=== PATIENT | male | born 1950 | race African-American/Black ===

== ENCOUNTER 2019-07-11 10:02 | Emergency (ER) | payer MEDICARE ==
[~2019-07-11] VITALS: Ht 177.8 cm; Wt 68.0 kg
[2019-07-11] MEDS ORDERED: KETOROLAC 60MG/2ML VIAL IM ONE (10:45)
[2019-07-11 14:12] VITALS: BP 145/68
== END 2019-07-11 14:17 | disposition home or self-care (01) ==
LOC: ER 10:02
DX: G89.29 Other chronic pain (principal); M25.512 Pain in left shoulder; M54.9 Dorsalgia, unspecified; I11.9 Hypertensive heart disease without heart failure; Z86.73 Personal history of transient ischemic attack (TIA), and cerebral infarction without residual deficits
CPT/HCPCS: 96372; 99283; J1885

== ENCOUNTER 2020-12-27 06:03 | Inpatient (IN) | payer MEDICARE, MEDICAID ==
[~2020-12-27] VITALS: Ht 170.2 cm; Wt 61.2 kg
[2020-12-27] MEDS ORDERED: IOHEXOL-350 100 ML BOTTLE ONE (07:24)
[2020-12-27 07:32] LABS: BASOPHILS % 0.8 % (0.0-2.0); EOSINOPHILS % 1.3 % (0.0-5.0); HEMATOCRIT. 40.3 % (42.0-52.0); HEMOGLOBIN. 13.2 g/dL (14.0-18.0); LYMPHOCYTES % 18.1 % (20.0-50.0); MEAN CORPUSCULAR VOLUME 85.2 fL (80.0-94.0); MEAN PLATELET VOLUME 9.7 fl (7.4-10.4); MONOCYTES % 13.8 % (2.0-8.0); PLATELET 192 x1000/uL (130-400); RED BLOOD CELL COUNT 4.73 mill/uL (4.7-6.1); RED CELL DISTRIBUTION WIDTH 15.7 % (11.6-14.6)
[2020-12-27 07:40] LABS: CHLORIDE 105 mEq/L (98-107)
[2020-12-27 07:44] LABS: ETHANOL BLOOD < 10 mg/dL
[2020-12-27 07:47] LABS: LDL CHOLESTEROL 72 mg/dL (5-100)
[2020-12-27 09:09] LABS: PROTHROMBIN TIME 10.3 sec (9.6-11.0)
[2020-12-27] MEDS ORDERED: ASPIRIN 325MG EC TABLET PO ONE (10:00)
[2020-12-27] MEDS ORDERED: POTASSIUM CHLORIDE 20MEQ TABLET SR PO NR (10:45)
[2020-12-27 10:58] LABS: CLARITY URINE CLEAR (CLEAR); COLOR URINE YELLOW (YELLOW); KETONES URINE TRACE (NEGATIVE); LEUKOCYTE ESTERASE URINE NEGATIVE (NEGATIVE); NITRITE URINE NEGATIVE (NEGATIVE); OCCULT BLOOD URINE TRACE (NEGATIVE); PH URINE 5.5 (4.5-8.0); PROTEIN URINE NEGATIVE (NEGATIVE); SPECIFIC GRAVITY URINE 1.028 (1.005-1.030)
[2020-12-27 11:11] LABS: *AMPHETAMINES SCREEN URINE NEGATIVE (NEGATIVE); *BARBITURATES SCREEN URINE NEGATIVE (NEGATIVE); *BENZODIAZEPINES SCREEN URINE NEGATIVE (NEGATIVE)
[2020-12-27 11:12] LABS: *COCAINE SCREEN URINE PRESUMTIVE POSITIVE (NEGATIVE); CANNABINOID URINE SCREEN NEGATIVE (NEGATIVE); METHADONE URINE SCREEN NEGATIVE (NEGATIVE); OPIATES URINE SCREEN NEGATIVE (NEGATIVE); PHENCYCLIDINE URINE SCREEN NEGATIVE (NEGATIVE)
[2020-12-27 12:07] VITALS: BP 202/94
[2020-12-27] MEDS ORDERED: HYDRALAZINE 20MG/ML VIAL IV ONE (12:45)
[2020-12-27] MEDS ORDERED: LORAZEPAM 2MG/ML CPJ IV PRN ×3 (12:45→15:30)
[2020-12-27] MEDS: INSULIN LISPRO 100 UNITS/ML SUBCUT SCH ×3 (12:50→21:00)
[2020-12-27] MEDS ORDERED: GUAIFENESIN 200MG/10ML SUGAR FREE UDC PO PRN (13:00)
[2020-12-27] MEDS ORDERED: DOCUSATE SODIUM 100MG CAPSULE PO PRN (13:00)
[2020-12-27] MEDS ORDERED: ONDANSETRON HCL 4MG/2ML INJ IV PRN (13:00)
[2020-12-27] MEDS ORDERED: HYDROCODONE/ACETAMINOPHEN 5/325MG TABLET PO PRN (13:00)
[2020-12-27] MEDS ORDERED: IPRATROPIUM/ALBUTEROL 0.5-3(2.5)MG/3ML NEB NEB PRN (13:00)
[2020-12-27] MEDS ORDERED: MAGNESIUM/ALUMINUM HYDROXIDE/SIMETHICONE 30ML UDC PO PRN (13:00)
[2020-12-27] MEDS ORDERED: ACETAMINOPHEN 325MG TABLET PO PRN (13:00)
[2020-12-27] MEDS: ASPIRIN 81MG TABLET PO SCH (13:00)
[2020-12-27] MEDS ORDERED: ACETAMINOPHEN 650MG SUPP PR PRN (13:00)
[2020-12-27] MEDS: AMLODIPINE 5MG TABLET PO SCH (13:00)
[2020-12-27] MEDS ORDERED: CEFTRIAXONE 1 G PREMIX 50 ML IV SCH (13:00)
[2020-12-27] MEDS ORDERED: DEXTROSE 50% WATER 50ML SYRINGE IV PRN (13:00)
[2020-12-27] MEDS ORDERED: NA PHOS,M-B/NA PHOS,DI-BA ENEMA 118ML PR PRN (13:00)
[2020-12-27] MEDS ORDERED: *PATIENT'S OWN MEDICATION STORAGE XX SCH (13:15)
[2020-12-27 14:15] VITALS: BP 130/76
[2020-12-27] MEDS ORDERED: GLYC10.7 INH (14:40)
[2020-12-27] MEDS ORDERED: BACL20TA MT (14:40)
[2020-12-27] MEDS ORDERED: AMLO1CAP2 MT (14:40)
[2020-12-27] MEDS ORDERED: DICL100G31 TP (14:40)
[2020-12-27] MEDS ORDERED: CRES10 MT (14:40)
[2020-12-27] MEDS ORDERED: ASPI-1497 MT (14:40)
[2020-12-27] MEDS ORDERED: TRAM50TA94 MT (14:40)
[2020-12-27] MEDS ORDERED: DONE10TA11 MT (14:40)
[2020-12-27] MEDS: CEFTRIAXONE 1,000 MG in DEXTROSE 5% WATER 50 ML IV SCH (15:43)
[2020-12-27 16:00] VITALS: BP 135/78
[2020-12-27] MEDS: AZITHROMYCIN 500 MG in DEXT 5% WATER 250 ML IV SCH (16:15)
[2020-12-27] MEDS: BLOOD SUGAR DIAGNOSTIC STRIP TEST SCH ×2 (16:41→21:00)
[2020-12-27 17:27] LABS: CREATINE KINASE 768 IU/L (39-308)
[2020-12-27 17:28] LABS: CREATINE KINASE MB FRACTION 11.7 ng/mL (0.5-3.6)
[2020-12-27 20:00] VITALS: BP 125/88
[2020-12-27] MEDS ORDERED: HALOPERIDOL LACTATE 5MG/ML VIAL IM PRN (21:30)
[2020-12-27] MEDS: FAMOTIDINE 20MG TABLET PO SCH (22:10)
[2020-12-27] MEDS: DIPHENHYDRAMINE 50MG/ML VIAL IV PRN (22:10)
[2020-12-27] MEDS: ATORVASTATIN CALCIUM 20MG TABLET PO SCH (22:10)
[2020-12-28] VITALS (7 sets, daily range): BP systolic 153–185; BP diastolic 85–114
[2020-12-28 00:33] LABS: CREATINE KINASE 823 IU/L (39-308)
[2020-12-28 00:34] LABS: CREATINE KINASE MB FRACTION 10.5 ng/mL (0.5-3.6)
[2020-12-28] MEDS: BLOOD SUGAR DIAGNOSTIC STRIP TEST SCH ×4 (06:57→21:50)
[2020-12-28 06:58] LABS: BASOPHILS % 0.5 % (0.0-2.0); EOSINOPHILS % 1.8 % (0.0-5.0); HEMATOCRIT. 40.9 % (42.0-52.0); HEMOGLOBIN. 13.6 g/dL (14.0-18.0); LYMPHOCYTES % 19.5 % (20.0-50.0); MEAN CORPUSCULAR HEMOGLOBIN 28.6 pg (28.0-32.0); MEAN CORPUSCULAR VOLUME 86.3 fL (80.0-94.0); MEAN PLATELET VOLUME 10.2 fl (7.4-10.4); MONOCYTES % 10.5 % (2.0-8.0); NEUTROPHILS % 67.7 % (40.0-76.0); PLATELET 191 x1000/uL (130-400); RED BLOOD CELL COUNT 4.74 mill/uL (4.7-6.1); RED CELL DISTRIBUTION WIDTH 15.5 % (11.6-14.6)
[2020-12-28 07:40] LABS: CHLORIDE 107 mEq/L (98-107)
[2020-12-28] MEDS: INSULIN LISPRO 100 UNITS/ML SUBCUT SCH ×4 (07:50→21:00)
[2020-12-28] MEDS: ASPIRIN 81MG TABLET PO SCH (07:51)
[2020-12-28] MEDS: AMLODIPINE 5MG TABLET PO SCH (07:51)
[2020-12-28 08:03] LABS: HDL CHOLESTEROL 100 mg/dL (40-59)
[2020-12-28 08:06] LABS: T4 FREE 1.33 ng/dL (0.76-1.46)
[2020-12-28 08:08] LABS: LDL CHOLESTEROL 72 mg/dL (5-100)
[2020-12-28] MEDS: POTASSIUM CHLORIDE INJ 40 MEQ in DEXT 5% WATER 250 ML IV NR ×2 (11:30→16:18)
[2020-12-28] MEDS ORDERED: ASPI-1497 MT (14:59)
[2020-12-28] MEDS ORDERED: LIP40 MT (14:59)
[2020-12-28] MEDS: AZITHROMYCIN 500 MG in DEXT 5% WATER 250 ML IV SCH (15:00)
[2020-12-28] MEDS: CEFTRIAXONE 1,000 MG in DEXTROSE 5% WATER 50 ML IV SCH (15:00)
[2020-12-28] MEDS ORDERED: POTASSIUM CHLORIDE 20MEQ/PACKET PO NR (20:45)
[2020-12-28] MEDS: DIPHENHYDRAMINE 50MG/ML VIAL IV PRN (21:49)
[2020-12-28] MEDS: HYDRALAZINE 20MG/ML VIAL IV PRN (21:49)
[2020-12-28] MEDS: FAMOTIDINE 20MG TABLET PO SCH (21:49)
[2020-12-28] MEDS: ATORVASTATIN CALCIUM 20MG TABLET PO SCH (21:49)
[2020-12-29] VITALS: BP 143/92
[2020-12-29 04:00] VITALS: BP 166/99
[2020-12-29] MEDS: HYDRALAZINE 20MG/ML VIAL IV PRN (05:40)
[2020-12-29] MEDS: BLOOD SUGAR DIAGNOSTIC STRIP TEST SCH ×2 (05:48→12:18)
[2020-12-29 07:28] LABS: BASOPHILS % 0.7 % (0.0-2.0); EOSINOPHILS % 2.7 % (0.0-5.0); LYMPHOCYTES % 19.8 % (20.0-50.0); MEAN CORPUSCULAR HEMOGLOBIN 28.1 pg (28.0-32.0); MEAN CORPUSCULAR VOLUME 86.1 fL (80.0-94.0); MEAN PLATELET VOLUME 10.2 fl (7.4-10.4); MONOCYTES % 11.4 % (2.0-8.0); NEUTROPHILS % 65.4 % (40.0-76.0); PLATELET 200 x1000/uL (130-400); RED BLOOD CELL COUNT 4.99 mill/uL (4.7-6.1); RED CELL DISTRIBUTION WIDTH 15.2 % (11.6-14.6)
[2020-12-29] MEDS: INSULIN LISPRO 100 UNITS/ML SUBCUT SCH ×2 (07:38→12:18)
[2020-12-29 07:42] LABS: CHLORIDE 104 mEq/L (98-107)
[2020-12-29 08:00] VITALS: BP 159/76
[2020-12-29] MEDS: ASPIRIN 81MG TABLET PO SCH (08:30)
[2020-12-29] MEDS: AMLODIPINE 5MG TABLET PO SCH (08:30)
[2020-12-29 12:00] VITALS: BP 157/103
[2020-12-29] MEDS ORDERED: POTASSIUM CHLORIDE 20MEQ TABLET SR PO NR (12:00)
[2020-12-29] MEDS: CEFTRIAXONE 1,000 MG in DEXTROSE 5% WATER 50 ML IV SCH (15:00)
[2020-12-29] MEDS: AZITHROMYCIN 500 MG in DEXT 5% WATER 250 ML IV SCH (15:00)
== END 2020-12-29 17:00 | disposition home or self-care (01) | DRG 70 ==
LOC: ER 06:03 → 6WST 09:53 → EDBEDREQ 09:57 → EDBEDREQTM 09:57 → EDBEDREQSVC 09:59 → ENRESERV 10:20 → SUPCPDRO 10:41 → 6WST 15:59
PROVIDERS: ADMIT Internal Medicine; ATTEND Internal Medicine
DX: G93.40 Encephalopathy, unspecified (principal); I50.43 Acute on chronic combined systolic (congestive) and diastolic (congestive) heart failure; I69.954 Hemiplegia and hemiparesis following unspecified cerebrovascular disease affecting left non-dominant side; I16.0 Hypertensive urgency; E87.6 Hypokalemia; I25.10 Atherosclerotic heart disease of native coronary artery without angina pectoris; F17.210 Nicotine dependence, cigarettes, uncomplicated; Z20.822 Contact with and (suspected) exposure to COVID-19; I77.810 Thoracic aortic ectasia; F14.10 Cocaine abuse, uncomplicated; I11.0 Hypertensive heart disease with heart failure; Z79.899 Other long term (current) drug therapy; Z95.2 Presence of prosthetic heart valve; Z95.1 Presence of aortocoronary bypass graft; Z71.51 Drug abuse counseling and surveillance of drug abuser; G25.5 Other chorea; R41.0 Disorientation, unspecified; D64.9 Anemia, unspecified
CPT/HCPCS: 36415; 70496; 70498; 70551; 71045; 72170; 73060; 73562; 80048; 80053; 80061; 80305; 80320; 81003; 82550; 82553; 82962; 83036; 83721; 84439; 84443; 84484; 85025; 87426; 92610; 93005; 93306; 93970; 97162; 97166; 99291; J0360; J0456; J0696; J1200; J1630; J1815; J2060; J3480; J7060; Q9967; G0480